=== PATIENT | male | born 1935 | race Two or more races ===

== ENCOUNTER 2024-06-16 20:20 | Inpatient (IN) | payer MEDICARE, BC ==
[~2024-06-16] VITALS: Ht 170.2 cm; Wt 72.6 kg
[2024-06-16 21:11] LABS: BASOPHILS # (AUTO) 0.2 K/uL (0.0-0.2); BASOPHILS % (AUTO) 1.9 % (0.0-2.0); EOSINOPHILS # (AUTO) 0.2 K/uL (0.0-0.7); EOSINOPHILS % (AUTO) 1.9 % (0.0-6.0); HEMATOCRIT 29 % (39-51); HEMOGLOBIN 9.2 g/dL (13.5-17.5); LYMPHOCYTES # (AUTO) 0.5 K/uL (0.8-4.8); LYMPHOCYTES % (AUTO) 5.5 % (20.0-44.0); MEAN CORPUSCULAR HEMOGLOBIN 28 PG (26.0-33.0); MEAN CORPUSCULAR HGB CONC 32 g/dl (31.0-36.0); MEAN CORPUSCULAR VOLUME 88 fL (80-96); MONOCYTES # (AUTO) 0.8 K/uL (0.1-1.30); MONOCYTES % (AUTO) 9.2 % (2.0-12.0); NEUTROPHILS % (AUTO) 81.5 % (43.0-81.0); PLATELET COUNT (AUTO) 235 K/uL (150-450); RED BLOOD CELL COUNT(AUTO) 3.32 MIL/uL (4.5-6.0); RED CELL DISTRIBUTION WIDTH 16.3 % (11.5-15.0); WHITE BLOOD COUNT (AUTO) 8.6 K/uL (4.3-11.0)
[2024-06-16 21:22] LABS: CALCIUM, SERUM 7.9 mg/dL (8.5-10.1); CARBON DIOXIDE 22 mmol/L (21-32); CHLORIDE 110 mmol/L (98-107); CREATININE 1.6 mg/dL (0.6-1.3); GLUCOSE 128 mg/dL (74-106); POTASSIUM 4.1 mmol/L (3.5-5.1); SODIUM SERUM 142 mmol/L (136-145); UREA NITROGEN, BLOOD 28 mg/dL (7-18)
[2024-06-16 21:26] LABS: INR 1.07 (0.91-1.10); PARTIAL THROMBOPLASTIN TIME 22.8 SEC (24.3-34.3)
[2024-06-16 21:28] LABS: ALANINE AMINOTRANSFERASE 20 U/L (12-78); ALBUMIN 3.8 g/dL (3.4-5.0); ALKALINE PHOSPHATASE 63 U/L (46-116); ASPARTATE AMINOTRANSFERASE 23 U/L (15-37); BILIRUBIN,TOTAL 0.2 mg/dL (0.2-1.0); LIPASE 34 U/L (16-77); TOTAL PROTEIN, SERUM 6.2 g/dL (6.4-8.2)
[2024-06-16 21:31] LABS: LACTIC ACID 1.3 mmol/L (0.4-2.0)
[2024-06-16] MEDS ORDERED: IV NS 0.9% 250 ML IV ONE (21:35)
[2024-06-16] MEDS ORDERED: IOHEXOL-300 100 ML VIAL IV ONE (21:35)
[2024-06-16 23:28] LABS: HEMOGLOBIN 7.9 g/dL (13.5-17.5)
[2024-06-17] VITALS (9 sets, daily range): BP systolic 90–130; BP diastolic 51–83; TEMP 97.9–98.2; O2SAT 94–99
[2024-06-17] MEDS ORDERED: ONDANSETRON HCL/PF 4 MG/2 ML VIAL IVP PRN (00:30)
[2024-06-17] MEDS ORDERED: Z GUARD REMEDY 4 OZ OINT TP PRN (00:30)
[2024-06-17] MEDS: IV NS 0.9% 1,000 ML IV PRN (00:34)
[2024-06-17 04:14] LABS: BASOPHILS # (AUTO) 0.1 K/uL (0.0-0.2); BASOPHILS % (AUTO) 1.9 % (0.0-2.0); EOSINOPHILS # (AUTO) 0.2 K/uL (0.0-0.7); EOSINOPHILS % (AUTO) 3.2 % (0.0-6.0); HEMATOCRIT 23 % (39-51); HEMOGLOBIN 7.2 g/dL (13.5-17.5); LYMPHOCYTES # (AUTO) 0.6 K/uL (0.8-4.8); LYMPHOCYTES % (AUTO) 12.5 % (20.0-44.0); MEAN CORPUSCULAR HEMOGLOBIN 28 PG (26.0-33.0); MEAN CORPUSCULAR HGB CONC 32 g/dl (31.0-36.0); MEAN CORPUSCULAR VOLUME 86 fL (80-96); MONOCYTES # (AUTO) 0.6 K/uL (0.1-1.30); MONOCYTES % (AUTO) 11.6 % (2.0-12.0); NEUTROPHILS # (AUTO) 3.4 K/uL (1.8-8.9); NEUTROPHILS % (AUTO) 70.8 % (43.0-81.0); PLATELET COUNT (AUTO) 187 K/uL (150-450); RED BLOOD CELL COUNT(AUTO) 2.62 MIL/uL (4.5-6.0); RED CELL DISTRIBUTION WIDTH 15.9 % (11.5-15.0); WHITE BLOOD COUNT (AUTO) 4.8 K/uL (4.3-11.0)
[2024-06-17 04:22] LABS: PHOSPHORUS 3.5 mg/dL (2.5-4.9)
[2024-06-17] MEDS ORDERED: FERR325T24 PO (09:07)
[2024-06-17] MEDS ORDERED: ASCO-352 PO (09:07)
[2024-06-17] MEDS ORDERED: FOLI0.8C PO (09:07)
[2024-06-17] MEDS ORDERED: MEMA10TA PO (09:07)
[2024-06-17] MEDS ORDERED: MAG-135 PO (09:07)
[2024-06-17] MEDS ORDERED: BISA10SU11 RC (09:07)
[2024-06-17] MEDS ORDERED: LEVO125T8 PO (09:07)
[2024-06-17] MEDS ORDERED: DOCU100C36 PO ×2 (09:07)
[2024-06-17] MEDS ORDERED: CYAN100096 PO (09:07)
[2024-06-17] MEDS ORDERED: APIX2.5T PO (09:07)
[2024-06-17] MEDS ORDERED: PRAV40TA3 PO (09:07)
[2024-06-17] MEDS: PANTOPRAZOLE 40 MG VIAL IV SCH (09:15)
[2024-06-17 10:08] LABS: HEMOGLOBIN 6.4 g/dL (13.5-17.5)
[2024-06-17] MEDS: PEG 3350/NA SULF,BICARB,CL/KCL 4,000 ML BOTTLE PO ONE (12:06)
[2024-06-17 15:29] LABS: CREATININE, URINE 187.4 MG/DL (30.0-125.0); URINE TOTAL PROTEIN 45.8 mg/dL (0-11.9)
[2024-06-17 15:43] LABS: APPEARANCE,URINE CLEAR (CLEAR); BILIRUBIN,URINE NEGATIVE (NEGATIVE); BLOOD, URINE NEGATIVE Ery/uL (NEGATIVE); COLOR,URINE YELLOW (YELLOW); KETONES,URINE NEGATIVE (NEGATIVE); LEUKOCYTE ESTERASE ,URINE NEGATIVE (NEGATIVE); NITRITE, URINE NEGATIVE (NEGATIVE); PH,URINE 5.5 (5.0-8.0); PROTEIN,URINE TRACE mg/dl (NEGATIVE); UGLUCOSE NEGATIVE (NEGATIVE); UROBILINOGEN,URINE 0.2 EU/dL (0.2)
[2024-06-17 15:48] LABS: ADD URINE CULTURE NO; BACTERIA,URINE Rare /HPF (None Seen); RBC,URINE 0-2 /HPF (0-2); SQUAMOUS EPITHELIAL CELL,UR None Seen /HPF (None Seen); WBC,URINE 0-2 /HPF (0-3)
[2024-06-17 16:30] LABS: EOSINOPHIL,URINE None Seen
[2024-06-17 18:30] LABS: BASOPHILS # (AUTO) 0.1 K/uL (0.0-0.2); BASOPHILS % (AUTO) 1.9 % (0.0-2.0); EOSINOPHILS # (AUTO) 0.1 K/uL (0.0-0.7); EOSINOPHILS % (AUTO) 1.8 % (0.0-6.0); HEMATOCRIT 23 % (39-51); HEMOGLOBIN 7.6 g/dL (13.5-17.5); LYMPHOCYTES # (AUTO) 0.6 K/uL (0.8-4.8); MEAN CORPUSCULAR HEMOGLOBIN 29 PG (26.0-33.0); MEAN CORPUSCULAR HGB CONC 32 g/dl (31.0-36.0); MEAN CORPUSCULAR VOLUME 88 fL (80-96); MONOCYTES % (AUTO) 15.5 % (2.0-12.0); NEUTROPHILS # (AUTO) 4.6 K/uL (1.8-8.9); NEUTROPHILS % (AUTO) 71.8 % (43.0-81.0); PLATELET COUNT (AUTO) 187 K/uL (150-450); RED BLOOD CELL COUNT(AUTO) 2.65 MIL/uL (4.5-6.0); RED CELL DISTRIBUTION WIDTH 15.6 % (11.5-15.0); WHITE BLOOD COUNT (AUTO) 6.4 K/uL (4.3-11.0)
[2024-06-17 18:59] LABS: LYMPHOCYTES % (MANUAL) 9 % (16-48); NEUTROPHILS % (MANUAL) 78 (42-76)
[2024-06-17 19:00] LABS: MONOCYTES % (MANUAL) 13 % (0-11.0); PLATELET ESTIMATE ADEQUATE
[2024-06-18 07:30] VITALS: BP 114/67; TEMP 97.9; O2SAT 96
[2024-06-18 08:09] LABS: ALANINE AMINOTRANSFERASE 16 U/L (12-78); ALKALINE PHOSPHATASE 60 U/L (46-116); ASPARTATE AMINOTRANSFERASE 20 U/L (15-37); BILIRUBIN,TOTAL 0.4 mg/dL (0.2-1.0); CALCIUM, SERUM 7.9 mg/dL (8.5-10.1); CARBON DIOXIDE 22 mmol/L (21-32); CHLORIDE 111 mmol/L (98-107); CREATININE 1.3 mg/dL (0.6-1.3); GLUCOSE 108 mg/dL (74-106); PHOSPHORUS 3.2 mg/dL (2.5-4.9); POTASSIUM 3.7 mmol/L (3.5-5.1); SODIUM SERUM 143 mmol/L (136-145); TOTAL PROTEIN, SERUM 5.2 g/dL (6.4-8.2); UREA NITROGEN, BLOOD 20 mg/dL (7-18)
[2024-06-18 08:15] LABS: BASOPHILS # (AUTO) 0.1 K/uL (0.0-0.2); BASOPHILS % (AUTO) 1.3 % (0.0-2.0); EOSINOPHILS # (AUTO) 0.1 K/uL (0.0-0.7); EOSINOPHILS % (AUTO) 2.6 % (0.0-6.0); HEMATOCRIT 21 % (39-51); LYMPHOCYTES # (AUTO) 0.7 K/uL (0.8-4.8); LYMPHOCYTES % (AUTO) 14.4 % (20.0-44.0); MEAN CORPUSCULAR HEMOGLOBIN 28 PG (26.0-33.0); MEAN CORPUSCULAR HGB CONC 33 g/dl (31.0-36.0); MEAN CORPUSCULAR VOLUME 87 fL (80-96); MONOCYTES # (AUTO) 0.8 K/uL (0.1-1.30); MONOCYTES % (AUTO) 17.1 % (2.0-12.0); NEUTROPHILS # (AUTO) 3.2 K/uL (1.8-8.9); NEUTROPHILS % (AUTO) 64.6 % (43.0-81.0); PLATELET COUNT (AUTO) 181 K/uL (150-450); RED BLOOD CELL COUNT(AUTO) 2.42 MIL/uL (4.5-6.0); RED CELL DISTRIBUTION WIDTH 15.8 % (11.5-15.0)
[2024-06-18 08:20] LABS: HEMOGLOBIN 6.8 g/dL (13.5-17.5)
[2024-06-18 08:29] LABS: CREATINE KINASE, TOTAL 68 U/L (39-308)
[2024-06-18 10:23] LABS: EOSINOPHILS % (MANUAL) 1 % (0-4); LYMPHOCYTES % (MANUAL) 18 % (16-48); MONOCYTES % (MANUAL) 7 % (0-11.0); NEUTROPHILS % (MANUAL) 74 (42-76)
[2024-06-18 10:24] LABS: PLATELET ESTIMATE ADEQUATE
[2024-06-18 10:25] LABS: ANISOCYTOSIS 1+; HYPOCHROMASIA 1+; ROULEAUX 1+
[2024-06-18 11:30] VITALS: BP 100/53; TEMP 98
[2024-06-18 11:45] VITALS: BP 104/50; TEMP 98.1
[2024-06-18 12:15] VITALS: BP 99/52; TEMP 98
[2024-06-18 13:30] VITALS: BP 94/48; TEMP 98.2
[2024-06-18 17:00] LABS: THYROID STIMULATING HORMONE 12.89 uIU/mL (0.358-3.74)
[2024-06-18] MEDS ORDERED: ALBUMIN 5% 250 ML IV ONE (18:24)
[2024-06-18 20:00] VITALS: BP 93/47; TEMP 98.6; O2SAT 99
[2024-06-19] VITALS (7 sets, daily range): BP systolic 92–112; BP diastolic 46–61; TEMP 98–98.5; O2SAT 96
[2024-06-19 05:10] LABS: PTH, INTACT 51 pg/mL (15-65)
[2024-06-19 07:07] LABS: FOLIC ACID > 20.0 ng/mL (>3.0)
[2024-06-19 07:19] LABS: EOSINOPHILS # (AUTO) 0.1 K/uL (0.0-0.7); EOSINOPHILS % (AUTO) 3.2 % (0.0-6.0); HEMATOCRIT 21 % (39-51); LYMPHOCYTES # (AUTO) 0.7 K/uL (0.8-4.8); LYMPHOCYTES % (AUTO) 19.7 % (20.0-44.0); MEAN CORPUSCULAR HEMOGLOBIN 29 PG (26.0-33.0); MEAN CORPUSCULAR HGB CONC 33 g/dl (31.0-36.0); MEAN CORPUSCULAR VOLUME 87 fL (80-96); MONOCYTES # (AUTO) 0.6 K/uL (0.1-1.30); MONOCYTES % (AUTO) 15.6 % (2.0-12.0); NEUTROPHILS # (AUTO) 2.2 K/uL (1.8-8.9); NEUTROPHILS % (AUTO) 60.5 % (43.0-81.0); PLATELET COUNT (AUTO) 131 K/uL (150-450); RED BLOOD CELL COUNT(AUTO) 2.42 MIL/uL (4.5-6.0); RED CELL DISTRIBUTION WIDTH 15.5 % (11.5-15.0); WHITE BLOOD COUNT (AUTO) 3.7 K/uL (4.3-11.0)
[2024-06-19 07:33] LABS: HEMOGLOBIN 6.9 g/dL (13.5-17.5)
[2024-06-19 07:40] LABS: CALCIUM, SERUM 7.6 mg/dL (8.5-10.1); CARBON DIOXIDE 23 mmol/L (21-32); CHLORIDE 114 mmol/L (98-107); CREATININE 1.1 mg/dL (0.6-1.3); GLUCOSE 94 mg/dL (74-106); POTASSIUM 3.4 mmol/L (3.5-5.1); SODIUM SERUM 143 mmol/L (136-145); UREA NITROGEN, BLOOD 14 mg/dL (7-18)
[2024-06-19] MEDS ORDERED: POTASSIUM CHLORIDE 20 MEQ TAB.PRT.SR PO ONE (10:00)
[2024-06-19 10:33] LABS: EOSINOPHILS % (MANUAL) 3 % (0-4); LYMPHOCYTES % (MANUAL) 20 % (16-48); MONOCYTES % (MANUAL) 4 % (0-11.0); NEUTROPHILS % (MANUAL) 73 (42-76)
[2024-06-19 10:34] LABS: PLATELET ESTIMATE DECREASED
[2024-06-19 10:35] LABS: ANISOCYTOSIS 1+; HYPOCHROMASIA 1+
[2024-06-19] MEDS: POTASSIUM CL. PREMIX PERIPHER. 50 ML IV SCH (13:37)
[2024-06-19 18:24] LABS: HEMOGLOBIN 10.4 g/dL (13.5-17.5)
[2024-06-20 06:16] LABS: BASOPHILS % (AUTO) 0.9 % (0.0-2.0); EOSINOPHILS # (AUTO) 0.2 K/uL (0.0-0.7); EOSINOPHILS % (AUTO) 5.8 % (0.0-6.0); HEMATOCRIT 25 % (39-51); HEMOGLOBIN 8.3 g/dL (13.5-17.5); LYMPHOCYTES # (AUTO) 0.9 K/uL (0.8-4.8); LYMPHOCYTES % (AUTO) 22.4 % (20.0-44.0); MEAN CORPUSCULAR HEMOGLOBIN 29 PG (26.0-33.0); MEAN CORPUSCULAR HGB CONC 33 g/dl (31.0-36.0); MEAN CORPUSCULAR VOLUME 86 fL (80-96); MONOCYTES # (AUTO) 0.5 K/uL (0.1-1.30); NEUTROPHILS # (AUTO) 2.2 K/uL (1.8-8.9); NEUTROPHILS % (AUTO) 56.9 % (43.0-81.0); PLATELET COUNT (AUTO) 134 K/uL (150-450); RED CELL DISTRIBUTION WIDTH 15.4 % (11.5-15.0); WHITE BLOOD COUNT (AUTO) 3.8 K/uL (4.3-11.0)
[2024-06-20 06:23] LABS: CALCIUM, SERUM 7.3 mg/dL (8.5-10.1); CARBON DIOXIDE 23 mmol/L (21-32); CHLORIDE 112 mmol/L (98-107); GLUCOSE 87 mg/dL (74-106); POTASSIUM 3.4 mmol/L (3.5-5.1); SODIUM SERUM 142 mmol/L (136-145); UREA NITROGEN, BLOOD 11 mg/dL (7-18)
[2024-06-20 07:00] VITALS: BP 114/58; TEMP 98.2; O2SAT 95
[2024-06-20] MEDS ORDERED: DOCUSATE SODIUM 100 MG CAPSULE PO PRN (08:00)
[2024-06-20] MEDS ORDERED: BISACODYL SUPP (10 MG) 10 MG/SUPP.RECT SUPP.RECT RC PRN (08:00)
[2024-06-20] MEDS: DOCUSATE SODIUM 100 MG CAPSULE PO SCH (08:09)
[2024-06-20] MEDS: FERROUS SULFATE (325 MG) 325 MG/TAB TABLET PO SCH (08:09)
[2024-06-20] MEDS: LEVOTHYROXINE SODIUM 125 MCG TABLET PO SCH (08:09)
[2024-06-20] MEDS: ASCORBIC ACID 500 MG TABLET PO SCH (08:09)
[2024-06-20] MEDS: MEMANTINE HCL 5 MG TABLET PO SCH (08:10)
[2024-06-20] MEDS: CYANOCOBALAMIN 500 MCG TABLET PO SCH (08:10)
[2024-06-20] MEDS: FOLIC ACID 1 MG TABLET PO SCH (08:14)
[2024-06-20] MEDS: POTASSIUM CHLORIDE 20 MEQ TAB.PRT.SR PO SCH (09:48)
[2024-06-20 12:12] LABS: HEMOGLOBIN 8.8 g/dL (13.5-17.5)
[2024-06-20] MEDS ORDERED: ATORVASTATIN 10 MG TABLET PO SCH (18:00)
[2024-06-22 19:06] LABS: METHYLMALONIC ACID 127 nmol/L (0-378)
[2024-06-23 14:11] LABS: *SPE A/G RATIO 1.6 (0.7-1.7); *SPE ALBUMIN 3.2 g/dL (2.9-4.4); *SPE ALPHA-1-GLOBULIN 0.2 g/dL (0.0-0.4); *SPE ALPHA-2-GLOBULIN 0.5 g/dL (0.4-1.0); *SPE BETA GLOBULIN 0.8 g/dL (0.7-1.3); *SPE M-SPIKE Not Observed g/dL (Not Observed); *SPE PROTEIN TOTAL 5.2 g/dL (6.0-8.5); *SPEGAMMA GLOBULIN 0.6 g/dL (0.4-1.8)
== END 2024-06-20 13:45 | DRG 377 ==
LOC: ER 20:23 → TELE 23:30 → MED 06-17 01:45
PROVIDERS: ADMIT Nurse Practitioner Acute Care; ATTEND Nurse Practitioner Acute Care
PROC: 30233N1 Transfusion of Nonautologous Red Blood Cells into Peripheral Vein, Percutaneous Approach (ICD-10-PCS; principal; 2024-06-17)
PROC: 0DBK8ZZ Excision of Ascending Colon, Via Natural or Artificial Opening Endoscopic (ICD-10-PCS; 2024-06-18)
DX: K57.31 Diverticulosis of large intestine without perforation or abscess with bleeding (principal); G93.41 Metabolic encephalopathy; N17.0 Acute kidney failure with tubular necrosis; D62 Acute posthemorrhagic anemia; E86.0 Dehydration; K64.8 Other hemorrhoids; Z79.01 Long term (current) use of anticoagulants; N28.1 Cyst of kidney, acquired; Z86.718 Personal history of other venous thrombosis and embolism; E78.5 Hyperlipidemia, unspecified; E03.9 Hypothyroidism, unspecified; I48.91 Unspecified atrial fibrillation; E86.9 Volume depletion, unspecified; D50.9 Iron deficiency anemia, unspecified; G30.9 Alzheimer's disease, unspecified; F02.80 Dementia in other diseases classified elsewhere, unspecified severity, without behavioral disturbance, psychotic disturbance, mood disturbance, and anxiety; N50.89 Other specified disorders of the male genital organs; K63.5 Polyp of colon; N20.0 Calculus of kidney; M89.8X9 Other specified disorders of bone, unspecified site
CPT/HCPCS: 36415; 70450-TC; 76770-TC; 80048-TC; 80053-TC; 80076-TC; 81001; 82550-TC; 82570-TC; 82607-TC; 83605-TC; 83690-TC; 83735-TC; 83921; 83970; 84100-TC; 84155; 84165; 84300-TC; 84425; 84439-TC; 84443-TC; 84484-TC; 85025-TC; 85027-TC; 85730-TC; 86850-TC; 93970-TC; 97110-TC; 97116-TC; 97530-TC; A4223; A9560; G0378; J2470; J2704; J3480; J3490; J7030; J7050; P9016; P9045; Q9967